=== PATIENT | male | born 1955 | race African-American/Black ===

== ENCOUNTER 2016-11-28 01:45 | Inpatient (IN) | payer MEDICAID ==
[2016-11-28] VITALS (13 sets, daily range): BP systolic 140–187; BP diastolic 77–96
[~2016-11-28] VITALS: Ht 193 cm; Wt 101.6 kg
[~2016-11-28 01:45] MED LIST: ANUSOL-HC CREAM30 GM RECTAL; FOLIC ACID1 MG ORAL; HYDRALAZINE HCL50 MG ORAL; IBUPROFEN600 MG ORAL; ISORDIL30 MG GT; KEFLEX500 MG ORAL; NKM; VITAMIN B-1100 MG ORAL
[2016-11-28] MEDS ORDERED: AMLODIPINE BESYL5 MG ORAL (01:59)
[2016-11-28] MEDS ORDERED: Aspirin Baby 81mg ORAL ONE (02:15)
[2016-11-28] MEDS ORDERED: Nitroglycerin Subl 0.4mg tab (Bottle Of 25) SL PRN ×2 (02:30→06:30)
[2016-11-28 02:59] LABS: ALANINE AMINOTRANSFERASE 24 U/L (3-41); ALBUMIN/GLOBULIN RATIO 1.3 (1.0-2.7); ANION GAP 14 (5-15); ASPARTATE AMINO TRANSFERASE 21 U/L (5-40); CALCIUM 9.4 mg/dL (8.6-10.2); CARBON DIOXIDE 26 mEQ/L (20-30); CHLORIDE 101 mEQ/L (98-107); CREATININE 1.1 mg/dL (0.7-1.2); GLOMERULAR FILTRATION RATE > 60 mL/min (>60); HEMOLYSIS 7; POTASSIUM 3.8 mEQ/L (3.4-4.9); SODIUM 141 mEQ/L (135-145); TOTAL PROTEIN 7.4 g/dL (6.6-8.7)
[2016-11-28 03:01] LABS: TROPONIN I < 0.30 ng/mL (<=0.30)
[2016-11-28 03:11] LABS: CKMB 2.8 ng/mL (< 6.7)
[2016-11-28 03:26] LABS: BASOPHILS % (AUTO) 1.8 % (0.0-2.0); EOSINOPHILS % (AUTO) 5.2 % (0.0-3.0); LYMPHOCYTES % (AUTO) 48.5 % (20.0-45.0); MEAN CORPUSCULAR HEMOGLOBIN 31.9 PG (27.0-31.0); MEAN CORPUSCULAR HGB CONC 34.1 G/DL (32.0-36.0); MEAN CORPUSCULAR VOLUME 94 FL (80-99); MEAN PLATELET VOLUME 15.9 FL (6.5-10.1); MONOCYTES % (AUTO) 11.8 % (1.0-10.0); NEUTROPHILS % (AUTO) 32.7 % (45.0-75.0); PLATELET COUNT 110 K/UL (150-450); RED BLOOD COUNT 4.44 M/UL (4.70-6.10); RED CELL DISTRIBUTION WIDTH 11.1 % (11.6-14.8)
[2016-11-28] MEDS ORDERED: MAGNESIUM250 M2 PO (06:03)
[2016-11-28] MEDS ORDERED: FISH OIL 1,2001 EAC3 PO (06:03)
[2016-11-28] MEDS ORDERED: VITAMIN B122500 MCG PO (06:03)
[2016-11-28] MEDS ORDERED: TERBINAFINE HC250 MG PO (06:03)
[2016-11-28] MEDS ORDERED: Diltiazem 25mg/5ml IV PRN (06:30)
[2016-11-28] MEDS ORDERED: DuoNeb 0.5-3(2.5)mg/3ml neb HHN PRN (06:30)
[2016-11-28] MEDS ORDERED: Ketorolac 30mg Inj IV PRN (06:30)
[2016-11-28] MEDS ORDERED: Miralax 17gm pkt ORAL PRN (06:30)
[2016-11-28] MEDS ORDERED: Morphine Sulfate 2mg/ml Inj IVP PRN (06:30)
[2016-11-28] MEDS: Enalaprilat 2.5mg/2ml Inj IV PRN ×2 (07:00→21:11)
[2016-11-28] MEDS: Heparin 5000 units/ml inj SUBQ SCH ×2 (08:09→20:38)
--- NOTE | 2016-11-28 08:14 | Emergency Room Report ---
History of Present Illness General Chief Complaint: Dyspnea/Respdistress Source: Patient Present Illness [facility] The patient is 61-year-old male presented after increased difficulty breathing. This reported having a fluttering sensation to the left-sided chest. This was associated with some difficulty breathing which had been worsening over the past 2 days. He stated he had been having decreased exercise tolerance as well as some shortness of breath. Patient states that he had onset of symptoms several days ago.Patient denied vomiting or diarrhea. He became concerned that he had recent the sexual partner who may have given him infection. Patient stated previously been evaluated and not been noted to have any evidence of infection. Allergies: Coded Allergies: No Known Allergies (Unverified , 09/12/13) Patient History Past Medical History: see triage record Social History: Reports: smoking Reviewed Nursing Documentation: PMH: Agreed, PSxH: Agreed Nursing Documentation-PMH Past Medical History: No History, Except For Hx Cardiac Problems: Yes Hx Hypertension: Yes Hx Cancer: No Hx Gastrointestinal Problems: No Hx Neurological Problems: No Review of Systems All Other Systems: negative except mentioned in HPI Physical Exam Vital Signs Date Time Temp Pulse Resp B/P Pulse Ox O2 Delivery O2 Flow Rate FiO2 11/28/16 01:50 97.9 74 16 199/85 96 Room Air Sp02 EP Interpretation: reviewed, normal General Appearance: normal inspection, well appearing, no apparent distress, alert, GCS 15 Head: atraumatic ENT: normal ENT inspection, hearing grossly normal, normal voice Neck: normal inspection, full range of motion, supple, no bony tend Respiratory: normal inspection, lungs clear, normal breath sounds, no respiratory distress, no retraction, no wheezing Cardiovascular #1: regular rate, rhythm, no edema Gastrointestinal: normal inspection, normal bowel sounds, non tender, soft, no guarding, no hernia Genitourinary: no CVA tenderness Musculoskeletal: normal inspection, back normal, normal range of motion Neurologic: normal inspection, alert, oriented x3, responsive, product safety engineer III-XII nml as tested, speech normal Psychiatric: normal inspection, judgement/insight normal, mood/affect normal Skin: normal inspection, normal color, no rash Medical Decision Making Diagnostic Impression: Primary Impression: ACS (acute coronary syndrome) ER Course The patient presented for shortness of breath and palpitations. Differential included but was not limited to anemia, pneumonia, pneumothorax, myocardial infarction, pericardial effusion, congestive heart failure, acidosis. Because of complexity of patient's case laboratory testing and imaging studies were ordered. I EKG interpreted by me showed normal sinus rhythm a rate of [address] depression is an incomplete right bundle branch block no T wave inversions were noted. Laboratory testing was unremarkable. The patient was given aspirin as well as nitroglycerin with improvement of shortness of breath. Dr. Blanchard was contacted for inpatient management due to complexity of medical condition. Labs Test 11/28/16 02:15 White Blood Count 6.0 K/UL (4.8-10.8) Red Blood Count 4.44 M/UL (4.70-6.10) Hemoglobin 14.2 G/DL (14.2-18.0) Hematocrit 41.6 % (42.0-52.0) Mean Corpuscular Volume 94 FL (80-99) Mean Corpuscular Hemoglobin 31.9 PG (27.0-31.0) Mean Corpuscular Hemoglobin Concent 34.1 G/DL (32.0-36.0) Red Cell Distribution Width 11.1 % (11.6-14.8) Platelet Count 110 K/UL (150-450) Mean Platelet Volume 15.9 FL (6.5-10.1) Neutrophils (%) (Auto) 32.7 % (45.0-75.0) Lymphocytes (%) (Auto) 48.5 % (20.0-45.0) Monocytes (%) (Auto) 11.8 % (1.0-10.0) Eosinophils (%) (Auto) 5.2 % (0.0-3.0) Basophils (%) (Auto) 1.8 % (0.0-2.0) Sodium Level 141 mEQ/L (135-145) Potassium Level 3.8 mEQ/L (3.4-4.9) Chloride Level 101 mEQ/L (98-107) Carbon Dioxide Level 26 mEQ/L (20-30) Anion Gap 14 (5-15) Blood Urea Nitrogen 17 mg/dL (7-23) Creatinine 1.1 mg/dL (0.7-1.2) Estimat Glomerular Filtration Rate > 60 mL/min (>60) Glucose Level 100 mg/dL (74-106) Calcium Level 9.4 mg/dL (8.6-10.2) Total Bilirubin 0.3 mg/dL (0.0-1.2) Aspartate Amino Transf (AST/SGOT) 21 U/L (5-40) Alanine Aminotransferase (ALT/SGPT) 24 U/L (3-41) Alkaline Phosphatase 99 U/L (40-129) Total Creatine Kinase 249 U/L (38-174) Creatine Kinase MB 2.8 ng/mL (< 6.7) Creatine Kinase MB Relative Index 1.1 Troponin I < 0.30 ng/mL (<=0.30) Pro-B-Type Natriuretic Peptide 43 pg/mL (0-125) Total Protein 7.4 g/dL (6.6-8.7) Albumin 4.2 g/dL (3.5-5.2) Globulin 3.2 g/dL Albumin/Globulin Ratio 1.3 (1.0-2.7) Chest X-Ray Diagnostic Results EP Interpretation: Yes Findings: no consolidation, no effusion, no pneumothorax, no acute cardiopulmonary disease Number of Views: 1 Last Vital Signs Date Time Temp Pulse Resp B/P Pulse Ox O2 Delivery O2 Flow Rate FiO2 11/28/16 07:36 96.3 64 20 173/96 100 Room Air Status: improved Disposition: ADMITTED INPATIENT Condition: Mariusz Siddiqi Nov 28, 2016 08:14
--- NOTE | 2016-11-28 08:54 | History and Physical ---
History of Present Illness General Date patient seen: Nov 28, 2016 Time patient seen: 08:00 Reason for Hospitalization: Dyspnea/Respdistress Present Illness HPI 61 y/old male with fluttering sensations all over the body intermittent for years presented with chest tightness, fluttering sensation in the chest, mild SOB no cough, no wheezing, no hemoptysis denies congestion no fever, chills, no headache, no dizziness reports drinking 6pack beer/day, smoker 1 pack.day workup in ED revealed elevated BP troponin negative ECG with TWI inferior leas, incomplete BBB , no ischemic changes troponin negative CXR no acute cardiopulmonary disease pro BNP 43 all other labs unremarkable BP 199/85 patient was given ASA and Nitro and admitted for further management [facility] had been checked for STD numerous times, negative Allergies: Coded Allergies: No Known Allergies (Unverified , 09/12/13) Medication History Scheduled Amlodipine Besylate* (Amlodipine Besylate*), 5 MG ORAL DAILY, (Reported) Cyanocobalamin (Vitamin B-12) (Vitamin B12), 1,000 MCG PO DAILY, (Reported) Magnesium Oxide (Magnesium), 250 MG PO DAILY, (Reported) Argyle-3 Fatty Acids/Fish Oil (Fish Oil 1,200 Mg Softgel), 1 EACH PO DAILY, ( Reported) Terbinafine Hcl* (Lamisil*), 250 MG PO DAILY, (Reported) Discontinued Medications Cephalexin* (Keflex*), 500 MG ORAL Q6H Discontinued Reason: Pt stopped taking med Folic Acid* (Folic Acid*), 1 MG ORAL DAILY Discontinued Reason: Pt stopped taking med Hydralazine Hcl* (Hydralazine Hcl*), 50 MG ORAL EVERY 8 HOURS Discontinued Reason: Pt stopped taking med Ibuprofen* (Motrin*), 600 MG ORAL Q8H PRN for For Pain Discontinued Reason: Pt stopped taking med Isosorbide Dinitrate (Isosorbide Dinitrate), 30 MG GT DAILY Discontinued Reason: Pt stopped taking med No Known Medications* (NKM - No Known Medications*), 0 ., (Reported) Discontinued Reason: Pt stopped taking med Thiamine Hcl* (Vitamin B-1*), 100 MG ORAL DAILY Discontinued Reason: Pt stopped taking med Patient History Healthcare decision maker Resuscitation status Full Code Advanced Directive on File Past Medical/Surgical History Past Medical/Surgical History: (1) Dyspepsia (2) Congestive heart failure (CHF) (3) ETOH abuse (4) External hemorrhoid (5) Headache (6) Hypertension Review of Systems Constitutional: Reports: other - fluttering sensation in the body Eye: Reports: no symptoms ENT: Reports: no symptoms Respiratory: Reports: see HPI Cardiovascular: Reports: see HPI Gastrointestinal: Reports: no symptoms, other - dyspepsia, hemorrhoids Genitourinary: Reports: no symptoms Musculoskeletal: Reports: no symptoms Psychiatric: Reports: no symptoms Neurological: Reports: headache Endocrine: Reports: other Hematologic/Lymphatic: Reports: no symptoms Physical Exam General Appearance: WD/WN, no apparent distress, alert Lines, tubes and drains: peripheral HEENT: normocephalic, atraumatic, anicteric, PERRL Neck: supple Respiratory/Chest: lungs clear, no respiratory distress, respiratory distress Cardiovascular/Chest: normal rate, regular rhythm, no JVD Abdomen: normal bowel sounds, soft Extremities: normal range of motion, non-tender, no calf tenderness, normal capillary refill Skin Exam: normal pigmentation, warm/dry Neurologic: no motor/sensory deficits, alert, oriented x 3, responsive Musculoskeletal: normal muscle bulk Last 24 Hour Vital Signs Date Time Temp Pulse Resp B/P Pulse Ox O2 Delivery O2 Flow Rate FiO2 11/28/16 07:36 96.3 64 20 173/96 100 Room Air 11/28/16 07:00 173/96 11/28/16 05:50 96.6 68 20 176/94 100 Room Air 11/28/16 05:45 98.0 67 15 172/84 99 Room Air 11/28/16 05:35 98.0 67 15 172/84 99 Room Air 11/28/16 05:05 62 16 170/80 97 Room Air 11/28/16 04:40 98.0 73 16 173/84 98 Room Air 11/28/16 03:00 67 14 167/89 97 Room Air 11/28/16 02:48 70 13 179/92 96 Room Air 11/28/16 02:43 71 14 162/89 97 Room Air 11/28/16 02:38 185/85 11/28/16 02:38 72 15 187/86 99 Room Air 11/28/16 02:00 72 14 Room Air 11/28/16 01:50 97.9 74 16 199/85 96 Room Air Intake and Output 11/27/16 11/28/16 19:00 07:00 Intake Total 100 ml Balance 100 ml Intake Oral 100 ml Laboratory Tests Test 11/28/16 02:15 White Blood Count 6.0 K/UL (4.8-10.8) Red Blood Count 4.44 M/UL (4.70-6.10) L Hemoglobin 14.2 G/DL (14.2-18.0) Hematocrit 41.6 % (42.0-52.0) L Mean Corpuscular Volume 94 FL (80-99) Mean Corpuscular Hemoglobin 31.9 PG (27.0-31.0) H Mean Corpuscular Hemoglobin Concent 34.1 G/DL (32.0-36.0) Red Cell Distribution Width 11.1 % (11.6-14.8) L Platelet Count 110 K/UL (150-450) L Mean Platelet Volume 15.9 FL (6.5-10.1) H Neutrophils (%) (Auto) 32.7 % (45.0-75.0) L Lymphocytes (%) (Auto) 48.5 % (20.0-45.0) H Monocytes (%) (Auto) 11.8 % (1.0-10.0) H Eosinophils (%) (Auto) 5.2 % (0.0-3.0) H Basophils (%) (Auto) 1.8 % (0.0-2.0) Sodium Level 141 mEQ/L (135-145) Potassium Level 3.8 mEQ/L (3.4-4.9) Chloride Level 101 mEQ/L (98-107) Carbon Dioxide Level 26 mEQ/L (20-30) Anion Gap 14 (5-15) Blood Urea Nitrogen 17 mg/dL (7-23) Creatinine 1.1 mg/dL (0.7-1.2) Estimat Glomerular Filtration Rate > 60 mL/min (>60) Glucose Level 100 mg/dL (74-106) Calcium Level 9.4 mg/dL (8.6-10.2) Total Bilirubin 0.3 mg/dL (0.0-1.2) Aspartate Amino Transf (AST/SGOT) 21 U/L (5-40) Alanine Aminotransferase (ALT/SGPT) 24 U/L (3-41) Alkaline Phosphatase 99 U/L (40-129) Total Creatine Kinase 249 U/L (38-174) H Creatine Kinase MB 2.8 ng/mL (< 6.7) Creatine Kinase MB Relative Index 1.1 Troponin I < 0.30 ng/mL (<=0.30) Pro-B-Type Natriuretic Peptide 43 pg/mL (0-125) Total Protein 7.4 g/dL (6.6-8.7) Albumin 4.2 g/dL (3.5-5.2) Globulin 3.2 g/dL Albumin/Globulin Ratio 1.3 (1.0-2.7) Rapid Plasma Reagin Pending Height (Feet): 6 Height (Inches): 4.00 Weight (Pounds): 224 Medications Current Medications Medications (Trade) Dose Ordered Sig/Petra Route PRN Reason Start Time Stop Time Status Last Admin Dose Admin Acetaminophen (Tylenol) 650 mg Q4H PRN ORAL FEVER 11/28/16 06:30 12/28/16 06:29 Albuterol/ Ipratropium (DuoNeb 0.5-3(2.5)mg/3ml) 3 ml Q4H PRN HHN Shortness of Breath 11/28/16 06:30 12/03/16 06:29 Amlodipine Besylate (Norvasc) 5 mg DAILY ORAL 11/28/16 09:00 12/28/16 08:59 UNV Aspirin (ASA) 162 mg DAILY ORAL 11/28/16 09:00 12/28/16 08:59 11/28/16 08:12 Diltiazem HCl (Cardizem) 10 mg Q1H PRN IV heart rate more than 120, 11/28/16 06:30 12/28/16 06:29 Enalaprilat (Vasotec) 2.5 mg Q6H PRN IV sbp more than 160 11/28/16 06:30 12/28/16 06:29 11/28/16 07:00 Heparin Sodium (Porcine) (Heparin 5000 units/ml) 5,000 units EVERY 12 HOURS SUBQ 11/28/16 09:00 12/28/16 08:59 Ketorolac Tromethamine (Toradol 30mg) 30 mg Q6H PRN IV moderate pain ( 4-6) 11/28/16 06:30 12/03/16 06:29 Magnesium Oxide (Mag-Ox 400mg) 250 mg DAILY ORAL 11/28/16 09:00 12/28/16 08:59 UNV Morphine Sulfate (Morphine Sulfate) 2 mg Q4H PRN IVP severe Pain (Pain Scale 7-10) 11/28/16 06:30 12/05/16 06:29 Nitroglycerin (Ntg) 0.4 mg Q5M PRN SL Prn Chest Pain 11/28/16 06:30 12/28/16 06:29 Ondansetron HCl (Zofran) 4 mg Q6H PRN IVP Nausea & Vomiting 11/28/16 06:30 12/28/16 06:29 Pantoprazole (Protonix) 40 mg BEFORE BREAKFAST ORAL 11/28/16 06:30 12/28/16 06:29 11/28/16 07:00 Polyethylene Glycol (Miralax) 17 gm DAILYPRN PRN ORAL Constipation 11/28/16 06:30 12/28/16 06:29 Temazepam (Restoril) 15 mg HSPRN PRN ORAL Insomnia 11/28/16 06:30 12/05/16 06:29 Assessment/Plan Assessment/Plan ASSESSMENT chest pain r/o ACS HTN urgency Hx of ETOH abuse active smoker anxiety r/o syphilis PLAN OF CARE tele serial troponin ECG in am ECHO cardio eval start ASA BP management with CCB and optimize further as needed family and marriage counsellor on cessation of smoking and abstinence from ETOH no evidence of ETOH w/drawal, no hand tremors, no anxiety, no ALOC or other symptoms add Thiamine and folic acid check Mg in am declined Nicotine patch not using any inhalers at home no clinical evidence of COPD exacerbation O2 HHN prn check lipid panel TSH in am check RPR pain management with Morphine and Nitro prn DVT GI prophylaxis case discussed and evaluated by supervising physician Kirk (Adonaycrescencio)Chery NP Nov 28, 2016 08:54
[2016-11-28] MEDS ORDERED: Aspirin Baby 81mg ORAL SCH (09:00)
[2016-11-28] MEDS ORDERED: Magnesium Oxide 400mg tab ORAL SCH ×3 (09:00→11:00)
--- NOTE | 2016-11-28 11:06 | Diagnostic Imaging Report ---
Indication: Dyspnea Comparison: The A single view chest radiograph was obtained. Findings: Cardiomediastinal appearance is within normal limits for age. Pulmonary vascularity is appropriate. The diaphragmatic contour is smooth and costophrenic angles are sharp. No pleural effusions are identified. The bones are unremarkable. Impression: No acute findings
--- NOTE | 2016-11-28 15:49 | Cardiology Progress Note ---
Subjective Subjective [id number] Objective Last 24 Hour Vital Signs Date Time Temp Pulse Resp B/P Pulse Ox O2 Delivery O2 Flow Rate FiO2 11/28/16 15:20 98.1 57 20 140/77 96 Room Air 11/28/16 12:00 58 11/28/16 11:17 97.3 62 20 159/86 99 Room Air 11/28/16 10:20 64 165/80 11/28/16 08:00 56 11/28/16 07:36 96.3 64 20 173/96 100 Room Air 11/28/16 07:00 173/96 11/28/16 05:50 96.6 68 20 176/94 100 Room Air 11/28/16 05:45 98.0 67 15 172/84 99 Room Air 11/28/16 05:35 98.0 67 15 172/84 99 Room Air 11/28/16 05:05 62 16 170/80 97 Room Air 11/28/16 04:40 98.0 73 16 173/84 98 Room Air 11/28/16 03:00 67 14 167/89 97 Room Air 11/28/16 02:48 70 13 179/92 96 Room Air 11/28/16 02:43 71 14 162/89 97 Room Air 11/28/16 02:38 185/85 11/28/16 02:38 72 15 187/86 99 Room Air 11/28/16 02:00 72 14 Room Air 11/28/16 01:50 97.9 74 16 199/85 96 Room Air Intake and Output 11/27/16 11/28/16 19:00 07:00 Intake Total 100 ml Balance 100 ml Intake Oral 100 ml Laboratory Tests Test 11/28/16 02:15 White Blood Count 6.0 K/UL (4.8-10.8) Red Blood Count 4.44 M/UL (4.70-6.10) L Hemoglobin 14.2 G/DL (14.2-18.0) Hematocrit 41.6 % (42.0-52.0) L Mean Corpuscular Volume 94 FL (80-99) Mean Corpuscular Hemoglobin 31.9 PG (27.0-31.0) H Mean Corpuscular Hemoglobin Concent 34.1 G/DL (32.0-36.0) Red Cell Distribution Width 11.1 % (11.6-14.8) L Platelet Count 110 K/UL (150-450) L Mean Platelet Volume 15.9 FL (6.5-10.1) H Neutrophils (%) (Auto) 32.7 % (45.0-75.0) L Lymphocytes (%) (Auto) 48.5 % (20.0-45.0) H Monocytes (%) (Auto) 11.8 % (1.0-10.0) H Eosinophils (%) (Auto) 5.2 % (0.0-3.0) H Basophils (%) (Auto) 1.8 % (0.0-2.0) Sodium Level 141 mEQ/L (135-145) Potassium Level 3.8 mEQ/L (3.4-4.9) Chloride Level 101 mEQ/L (98-107) Carbon Dioxide Level 26 mEQ/L (20-30) Anion Gap 14 (5-15) Blood Urea Nitrogen 17 mg/dL (7-23) Creatinine 1.1 mg/dL (0.7-1.2) Estimat Glomerular Filtration Rate > 60 mL/min (>60) Glucose Level 100 mg/dL (74-106) Calcium Level 9.4 mg/dL (8.6-10.2) Total Bilirubin 0.3 mg/dL (0.0-1.2) Aspartate Amino Transf (AST/SGOT) 21 U/L (5-40) Alanine Aminotransferase (ALT/SGPT) 24 U/L (3-41) Alkaline Phosphatase 99 U/L (40-129) Total Creatine Kinase 249 U/L (38-174) H Creatine Kinase MB 2.8 ng/mL (< 6.7) Creatine Kinase MB Relative Index 1.1 Troponin I < 0.30 ng/mL (<=0.30) Pro-B-Type Natriuretic Peptide 43 pg/mL (0-125) Total Protein 7.4 g/dL (6.6-8.7) Albumin 4.2 g/dL (3.5-5.2) Globulin 3.2 g/dL Albumin/Globulin Ratio 1.3 (1.0-2.7) Rapid Plasma Reagin Pending NATHANIEL SCRUGGS Nov 28, 2016 15:49
--- NOTE | 2016-11-28 23:45 | Consultation ---
DATE OF CONSULTATION: 11/28/2016 CARDIOLOGY CONSULTATION CONSULTING PHYSICIAN: Nohemi Rey M.D. REFERRING PHYSICIAN: Oniel Blanchard M.D. IDENTIFYING DATA: The patient is a 61-year-old male. REASON FOR EVALUATION: Palpitations and shortness of breath. HISTORY OF PRESENT ILLNESS: The patient said that he came in because he had feeling of palpitations, feels like in more detail twitching in separate parts of his chest abdomen on and off. He said initially four days ago, it started but then he said that he has it for years and he was actually concerned that there is something under his skin, which is palpitating. PAST MEDICAL HISTORY: Significant for hypertension. PAST SURGICAL HISTORY: Negative. MEDICATIONS: Reviewed and reconciled. HABITS: He drinks and he smokes. Does not use any drugs that he denies. No allergies, coronary risk factors smoking, hypertension and hyperlipidemia. REVIEW OF SYSTEMS: No fever or chills. No syncope. No exertional chest pain. He says also he had shortness of breath intermittently, but does not sound like it is with exertion or anything new. No wheezing or cough. PHYSICAL EXAMINATION: VITAL SIGNS: Blood pressure 160/80, heart rate 60, temperature is normal, and oxygen saturation is normal. HEENT: PERRLA. EOMI. NECK: Supple. Jugular pressure is normal. No masses. LUNGS: Clear to auscultation bilaterally. HEART: PMI in the sixth intercostal space in anterior axial line. There is left ventricular heave. Slightly accented A2. ABDOMEN: Soft and nontender. No masses palpable. EXTREMITIES: Lower extremity, no edema. Distal pulses normal. NEUROLOGICAL: Normal. LABORATORY AND DIAGNOSTIC DATA: His labs are all reviewed. EKG is normal. Chest x-ray, unremarkable. Hemoglobin 14.2 and white count 6. CK is 249. Troponin is normal. IMPRESSION AND RECOMMENDATION: The patient has symptoms, which are probably not cardiac. He is on telemetry. There is no chest pain. The muscle twitching as he described across his body including abdomen is either muscle spasm or just anxiety. He is concerned about an infection. I discussed it with him and he is going to be observed on the monitor. There are no additional medications are recommended. Thank you for your consultation. Nohemi Rey M.D. DR: PEDRO JOB#: [id number] CC:
[2016-11-29] VITALS: BP 181/97
[2016-11-29] MEDS ORDERED: Thiamine 100mg tab ORAL SCH (09:00)
--- NOTE | 2016-11-30 14:38 | Discharge Summary ---
Discharge Summary Hospital Course Date of Admission Nov 28, 2016 at 03:13 Date of Discharge Nov 29, 2016 at 00:45 Admitting Diagnosis CONGESTIVE HEART FAILURE HPI Colby Finn is a 61 year old male who was admitted on Nov 28, 2016 at 03:13 for Acute Coronary Syndrome Hospital Course dc summary #[id number] Discharge Discharge Disposition Patient signed AMA Discharge Diagnoses: Kirk (Adonaycrescencio)Chery NP Nov 30, 2016 14:38
--- NOTE | 2016-12-01 01:01 | Discharge Summary 2 SIG ---
DATE OF ADMISSION: 11/28/2016 DATE OF DISCHARGE: 11/29/2016 REASON FOR ADMISSION: The patient is a 61-year-old male, presented to the emergency room with complaint of fluttering sensation and muscle twitching all over the body, it is intermittent and presented . The patient presented at this time also with the chest tightness and fluttering sensation in the chest and mild shortness of breath. No cough. No wheezing. No hemoptysis. He denies congestion. Denies wheezing. No fever. No chills. No headache. No dizziness. The patient reports drinking 6 pack of beer a day and smokes about a pack of cigarettes a day. Workup in the emergency room revealed elevated blood pressure. Troponin negative. EKG revealed T-wave inversion in inferior lead, incomplete bundle-branch block, no ischemic changes. Troponin was negative. Chest x-ray revealed no acute cardiopulmonary disease. ProBNP was 43. All other labs were negative. Blood pressure was 199/85. The patient was given aspirin and nitroglycerin and admitted for further management. [facility] . The patient had been checked for STD numerous x2 and was negative. The patient concerned about infection and wants to be checked again. ADMITTING DIAGNOSES: 1. Chest pain, rule out acute coronary syndrome. 2. Hypertensive urgency. 3. History of alcohol abuse. 4. Active smoker . 5. Anxiety. 6. Rule out syphilis. HOSPITAL COURSE: The patient admitted on telemetry floor. Serial troponins ordered. Echocardiogram ordered. Cardiology evaluation was requested. The patient started on aspirin. Blood pressure was managed with calcium channel kathy and clonidine as needed. The patient was counseled on cessation of smoking and abstinence from alcohol. The patient was also consult on safe sex practices. No evidence of alcohol withdrawal. No hand tremors. No anxiety. No altered level of consciousness. No other symptoms. Thiamine and folic acid added to medication regimen. The patient declined nicotine patch. He is not using any inhalers at home. Supplemental oxygen and pulmonary toilet provided as needed. Pulse oximetry stable on room air. No clinical evidence of COPD exacerbation. Pain management provided with morphine and nitroglycerin. DVT and GI prophylaxis provided. Cardiology consult was requested. Per paper novelty maker, the patient's chest pain is not cardiac. His muscle twitching across the body including abdomen likely muscle spasm or just anxiety. The patient decreased labs in the morning was order magnesium, lipid panel, and TSH. The patient refuses labs. Serology for RPR was negative. The patient was informed of that. Chest x-ray revealed no acute cardiopulmonary disease. Echocardiogram revealed preserved ejection fraction of 55%, right ventricular systolic pressure of 26 and mild left ventricular hypertrophy. The patient around on 11/29/2016 just pass midnight, the patient decided to sign against medical advice after he heard RPR results are negative. He signed the paper against medical advice. Risks and consequences of signing against medical advice were discussed with the patient. The patient insisted and signed the paper and left the unit in stable condition. DISCHARGE DIAGNOSES: 1. Likely atypical chest pain. 2. Hypertensive urgency. 3. History of alcohol abuse. 4. Active smoker. Oniel Blanchard M.D. I have been assigned to dictate discharge summary on this account and I was not involved in the patient's management. Chery Donahuecentral new york psychiatric centerHaim N.PMirtha DR: Jet JOB#: [id number] CC:
== END 2016-11-29 00:45 | disposition left against medical advice (07) | DRG 203 ==
LOC: EMR 02:39 → 2E 03:13 → EDBEDREQ 04:23
DX: R07.89 Other chest pain (principal); I50.9 Heart failure, unspecified; I16.0 Hypertensive urgency; F10.10 Alcohol abuse, uncomplicated; F17.200 Nicotine dependence, unspecified, uncomplicated; F41.9 Anxiety disorder, unspecified; R00.2 Palpitations
CPT/HCPCS: 36415; 71010; 80053; 82550; 82553; 83880; 84484; 85025; 86592; 93005; 93306; 94664

== ENCOUNTER 2017-11-24 16:36 | Emergency (ER) | payer MEDICAID ==
[~2017-11-24] VITALS: Ht 193 cm; Wt 102.1 kg
[~2017-11-24 16:36] MED LIST changes: +AMLODIPINE BESYL5 MG ORAL; +FISH OIL 1,2001 EAC3 PO; +MAGNESIUM250 M2 PO; +TERBINAFINE HC250 MG PO; +VITAMIN B122500 MCG PO
[2017-11-24 17:13] LABS: APPEARANCE,URINE CLEAR; BILIRUBIN, URINE NEGATIVE (NEGATIVE); GLUCOSE, URINE (UA) NEGATIVE (NEGATIVE); KETONES,URINE 1+ (NEGATIVE); LEUKOCYTE ESTERASE ,URINE NEGATIVE (NEGATIVE); NITRITE,URINE NEGATIVE (NEGATIVE); PH,URINE 5 (4.5-8.0); PROTEIN,URINE 3+ (NEGATIVE); UROBILINOGEN,URINE NORMAL MG/DL (0.0-1.0)
[2017-11-24 17:14] LABS: COLOR,URINE YELLOW
[2017-11-24] MEDS ORDERED: Azithromycin 250mg tab ORAL ONE (17:15)
[2017-11-24] MEDS ORDERED: Lidocaine 1% MPF 10mg/ml 5ml INJ ONE (17:15)
[2017-11-24 17:19] VITALS: BP 168/85
[2017-11-24] MEDS ORDERED: NORVASC2.5 MG ORAL (17:32)
--- NOTE | 2017-11-24 17:34 | Emergency Room Report ---
History of Present Illness General Chief Complaint: Male Urogenital Problems Present Illness HPI 62-year-old male patient presents to ER complaining of pain with urination for the past one day. Patient reports that he recently had sex with a new partner without protection. Reports that he is concerned about having sexual transmitted infection, states he has another partner and he does not want to infect. Denies fever, penile discharge, back pain, flank pain, abdominal pain, hematuria. Denies other acute symptoms at this time. Denies history of prostate problems. Reports he would like to be treated for STI, states he has history of STI. Also requesting refill for Norvasc medication. reports takes medication intermittently, trying to control with diet and exercise. Takes pills for high blood pressure. Denies chest pain, shortness breath, headache. Denies other acute symptoms or reports has follow-up appointment with primary care provider in 2 weeks. denies rash. Allergies: Coded Allergies: No Known Allergies (Unverified , 09/12/13) Patient History Past Medical History: see triage record Reviewed Nursing Documentation: PMH: Agreed; PSxH: Agreed Nursing Documentation-PMH Hx Cardiac Problems: Yes Hx Hypertension: Yes Hx Cancer: No Hx Gastrointestinal Problems: No Hx Neurological Problems: No Review of Systems All Other Systems: negative except mentioned in HPI Physical Exam Vital Signs Date Time Temp Pulse Resp B/P (MAP) Pulse Ox O2 Delivery O2 Flow Rate FiO2 11/24/17 16:47 98.0 80 20 176/90 98 Room Air 98.1 Sp02 EP Interpretation: reviewed, normal General Appearance: well appearing, no apparent distress, alert, GCS 15, non- toxic Head: normocephalic, atraumatic Eyes: bilateral eye normal inspection, bilateral eye PERRL ENT: hearing grossly normal, normal pharynx, no angioedema, normal voice, uvula midline, moist mucus membranes Neck: full range of motion Respiratory: lungs clear, normal breath sounds, no rhonchi, no respiratory distress, no accessory muscle use, no wheezing, speaking full sentences Cardiovascular #1: regular rate, rhythm, no edema Gastrointestinal: non tender, soft, no mass, non-distended, no guarding, no rebound Rectal: deferred Genitourinary: no CVA tenderness Musculoskeletal: back normal, digits/nails normal, gait/station normal, normal range of motion, non-tender Neurologic: alert, oriented x3, responsive, motor strength/tone normal, sensory intact Psychiatric: mood/affect normal Skin: no rash Lymphatic: no adenopathy Medical Decision Making PA Attestation Dr. Lara is my supervising Physician whom patient management has been discussed with. Diagnostic Impression: Primary Impression: Sexually transmitted infection Additional Impression: Encounter for medication refill ER Course Pt. presents to the ED c/o STI And requesting refill of Norvasc medication. Ddx considered but are not limited to gonorrhea, chalmydia, cystitis, pylonephritis. Vital signs: are WNL, pt. is afebrile. blood pressure elevated, patient denies acute symptoms, denies chest pain, shortness breath, abdominal pain, headache. Does not require acute intervention ER at this time. Informed patient to take medications as prescribed by primary care provider. Continue to eat healthy, low sodium diet,and exercise regularly. Ordered urinalysis, Azithromycin and Rocephin. ER course: physical exam benign. informed patient that STI symptoms usually do not present within 24 hours. informed patient needs to follow up with STI clinic for further testing treatment. Informed partners need for treatment. Avoid sexual contact for the next 2 weeks. wear condoms during sex. informed patient that other STI is may be present such as syphilis, needs to follow-up with the STI clinic for further testing. informed patient's symptoms may be related to prostate, follow-up with primary care provider for further treatment and referral as needed. Patient would like to treated for STI so that long-term partner does not contracted any infection. informed patient ER does not normally provide refills of medications. Will provide medications to patient's for Norvasc. follow-up with primary care provider to discuss treatment and further medication needs. Denies acute symptoms including chest pain and shortness of breath, does not require ER intervention at this time. DISCHARGE: Rx provided for Norvasc, 2.5 mg Advised to use safe sex practices including but not limited to use of condoms. Instructed patient to follow up with STI clinic and/or PCP for future STI treatment and prevention. Instructed patient to inform partner of need for treatment to prevent future infection. Patient is resting comfortably, in no acute distress, nontoxic appearing, talking without difficulty. Patient to take medications as instructed Will provide with patient care instructions and any necessary prescriptions. Care plan and follow-up instructions provided. Patient instructed to follow-up with primary care provider in 3 - 5 days. Patient questions asked and answered. Patient reports understanding and agreement to treatment plan. ER precautions given. Patient instructed to return to ER immediately for any new or worsening of symptoms including but not limited to increasing SOB, persistent fever. - Please note that this Emergency Department Report was dictated using Face++e learning designer technology software, occasionally this can lead to erroneous entry secondary to interpretation by the dictation equipment. Last Vital Signs Date Time Temp Pulse Resp B/P (MAP) Pulse Ox O2 Delivery O2 Flow Rate FiO2 11/24/17 17:19 98.1 86 17 168/85 98 Room Air 98.1 Disposition: HOME, SELF-CARE Condition: Stable Scripts Amlodipine Besylate (Norvasc) 2.5 Mg Tablet 2.5 MG ORAL DAILY, #25 TAB Prov: Mak Rojas 11/24/17 Patient Instructions: Medicine Refill at the Emergency Department, Sexually Transmitted Disease, [id number]-[id number] Additional Instructions: Followup with primary care provider to discuss further treatment and referral. ER does not normally provide refill of medications. Follow-up with STI clinic for further testing and treatment. Inform partners of need further testing and treatment. Avoid sexual contact for the next 2 weeks. Wear condoms during sex. Take medications as directed. Patient questions asked and answered. ER precautions given, patient instructed to return to ER immediately for any new or worsening of symptoms. Mak Rojas November 24, 2017 17:34
[2017-11-24 18:04] VITALS: BP 168/85
== END 2017-11-24 18:04 | disposition home or self-care (01) ==
LOC: EMR 17:37
DX: A64 Unspecified sexually transmitted disease (principal); Z76.0 Encounter for issue of repeat prescription; I10 Essential (primary) hypertension
CPT/HCPCS: 81003; 96372; 99283; J0696; Q0144

== ENCOUNTER 2018-01-31 14:26 | Emergency (ER) | payer MEDICAID ==
[~2018-01-31] VITALS: Ht 193 cm; Wt 101.6 kg
[~2018-01-31 14:26] MED LIST changes: +NORVASC2.5 MG ORAL
[2018-01-31 15:06] LABS: APPEARANCE,URINE CLEAR; BILIRUBIN, URINE NEGATIVE (NEGATIVE); COLOR,URINE PALE YELLOW; GLUCOSE, URINE (UA) NEGATIVE (NEGATIVE); KETONES,URINE NEGATIVE (NEGATIVE); LEUKOCYTE ESTERASE ,URINE NEGATIVE (NEGATIVE); NITRITE,URINE NEGATIVE (NEGATIVE); PH,URINE 5 (4.5-8.0); PROTEIN,URINE 3+ (NEGATIVE); UROBILINOGEN,URINE NORMAL (NORMAL)
--- NOTE | 2018-01-31 15:27 | Emergency Room Report ---
History of Present Illness General Chief Complaint: Male Urogenital Problems Source: Patient, Medical Record Present Illness HPI Patient presents emergency department today with multiple complaints. Patient currently has a history of UTI or STD he was treated multiple times antibiotics she's complaining of persistent dysuria or penile discharge. He also complains of lower back pain. In addition he complains of my redness and occasional crusting this been going on for weeks. He's requesting antibiotics without as well. He denies any fever chest pain shortness breath. No other complaints are noted. Symptoms noted moderate. Denies any radiation pain. Denies any sciatica. Denies any numbness. Denies any perineal tingling or abnormal sensation. Denies any testicular pain. No other modifying factors. No other associated signs and symptoms. No other complaints were noted. Allergies: Coded Allergies: No Known Allergies (Unverified , 09/12/13) Patient History Past Medical History: HTN, CAD Past Surgical History: none Pertinent Family History: none Social History: Denies: smoking, alcohol use, drug use Reviewed Nursing Documentation: PMH: Agreed; PSxH: Agreed Nursing Documentation-PMH Past Medical History: No History, Except For Hx Cardiac Problems: Yes Hx Hypertension: Yes Hx Cancer: No Hx Gastrointestinal Problems: No Hx Neurological Problems: No Review of Systems All Other Systems: negative except mentioned in HPI Physical Exam Vital Signs Date Time Temp Pulse Resp B/P (MAP) Pulse Ox O2 Delivery O2 Flow Rate FiO2 01/31/18 14:34 97.6 74 18 189/92 97 Room Air 97.5 Sp02 EP Interpretation: reviewed, normal General Appearance: normal inspection, well appearing, no apparent distress, alert Head: atraumatic Eyes: bilateral eye normal inspection - Conjunctivitis ENT: normal ENT inspection, hearing grossly normal, normal voice Neck: normal inspection, full range of motion, supple, no bony tend Respiratory: normal inspection, lungs clear, normal breath sounds, no respiratory distress, no retraction, no wheezing Cardiovascular #1: regular rate, rhythm, no edema Gastrointestinal: normal inspection, normal bowel sounds, non tender, soft, no guarding, no hernia Genitourinary: no CVA tenderness Musculoskeletal: other - back pain, tender paraspinal Neurologic: normal inspection, alert, responsive, speech normal Psychiatric: normal inspection, judgement/insight normal, mood/affect normal Skin: normal inspection, normal color, no rash Medical Decision Making Diagnostic Impression: Primary Impression: Hypertension Additional Impressions: Back pain Dysuria Conjunctivitis ER Course Patient presents emergency department with multiple complaints. Differential considerations include conjunctivitis, hypertension, hypertensive urgency, UTI, arthritis, sexually transmitted disease just to name a few. Patient laboratory workup was not impressive except for small amount white blood cells which could be consistent with UTI. However given patient's concern about sexually transmitted diseases patient was given one dose of Rocephin as well as doxycycline. Patient was also given a prescription for Cipro. Patient's complaint of conjunctivitis was treated with prescription for gentamicin drops. Patient also complained hypertension and was given prescription refill. Patient complained of lower back pain and x-rays were negative but consistent with arthritis. Patient was given pain medications.Patient is advised to follow up with primary doctor in 2-3 days and return the emergency room for any worsening symptoms and as needed. Labs Test 01/31/18 14:50 Urine Color Pale yellow Urine Appearance Clear Urine pH 5 (4.5-8.0) Urine Specific [place] 1.025 (1.005-1.035) Urine Protein 3+ (NEGATIVE) Urine Glucose (UA) Negative (NEGATIVE) Urine Ketones Negative (NEGATIVE) Urine Occult Blood Negative (NEGATIVE) Urine Nitrite Negative (NEGATIVE) Urine Bilirubin Negative (NEGATIVE) Urine Urobilinogen Normal MG/DL (NORMAL) Urine Leukocyte Esterase Negative (NEGATIVE) Urine RBC 0-2 /HPF (0 - 0) Urine WBC 2-4 /HPF (0 - 0) Urine Squamous Epithelial Cells None /LPF (NONE/OCC) Urine Amorphous Sediment Few /LPF (NONE) Urine Bacteria Few /HPF (NONE) Other X-Ray Diagnostic Results Other X-Ray Diagnostic Results : # of Views/Limited Vs Complete: 3 View Indication: Pain EP Interpretation: Yes Interpretation: no dislocation, no soft tissue swelling, no fractures Impression: No acute disease Electronically Signed by: Electronically signed by Jaime Pappas MD Last Vital Signs Date Time Temp Pulse Resp B/P (MAP) Pulse Ox O2 Delivery O2 Flow Rate FiO2 01/31/18 14:34 97.6 74 18 189/92 97 Room Air 97.5 Status: improved Disposition: HOME, SELF-CARE Condition: Stable Scripts Amlodipine Besylate* (AMLODIPINE BESYLATE*) 5 Mg Tablet 5 MG ORAL DAILY for 30 Days, TAB Prov: Jaime Pappas MD 01/31/18 Ciprofloxacin Hcl* (CIPROFLOXACIN HCL*) 500 Mg Tablet 500 MG ORAL Q12H, #14 TAB 0 Refills Prov: Jaime Pappas MD 01/31/18 Ibuprofen* (MOTRIN*) 600 Mg Tablet 600 MG ORAL Q8H PRN for For Pain, #20 TAB 0 Refills Prov: Jaime Pappas MD 01/31/18 Gentamicin Sulfate* (GENTAK*) 5 Ml Drops 1 DROP BOTH EYES Q4H, #1 DROP 0 Refills Prov: Jaime Pappas MD 01/31/18 Hydrocodone Bit/Acetaminophen 5-325* (NORCO 5-325*) 1 Each Tablet 1 TAB ORAL Q6H PRN for For Pain, #10 TAB 0 Refills Prov: Jaime Pappas MD 01/31/18 Doxycycline Hyclate* (VIBRAMYCIN*) 100 Mg Capsule 100 MG ORAL EVERY 12 HOURS, #14 CAP 0 Refills Prov: Jaime Pappas MD 01/31/18 Jaime Pappas MD Jan 31, 2018 15:27
[2018-01-31] MEDS ORDERED: GENTAK5 ML BOTH EYES (15:35)
[2018-01-31] MEDS ORDERED: VIBRAMYCIN100 MG ORAL (15:35)
[2018-01-31] MEDS ORDERED: NORCO 5-325 TA1 EACH ORAL (15:35)
[2018-01-31] MEDS ORDERED: CIPROFLOXACIN500 M2 ORAL (15:42)
[2018-01-31] MEDS ORDERED: IBUPROFEN600 MG ORAL (15:42)
[2018-01-31] MEDS ORDERED: AMLODIPINE BESYL5 MG ORAL (15:44)
[2018-01-31 15:45] VITALS: BP 198/95
[2018-01-31] MEDS ORDERED: Lidocaine 1% MPF 10mg/ml 5ml INJ ONE (15:45)
--- NOTE | 2018-01-31 16:55 | Diagnostic Imaging Report ---
Indication: Pain Technique: XRAY L Spine Ltd Comparison: None Findings: There is 6 nonrib-bearing lumbar-type vertebral bodies, assuming 12 paired ribs. No evidence of acute fracture or traumatic malalignment. Lumbar lordosis is maintained. There is degenerative change with mild disc space narrowing at the lower lumbar spine as well as osteophyte formation and facet arthropathy. Bowel gas pattern is nonspecific. No radiopaque foreign body seen. IMPRESSION: Overall mild degenerative change. No evidence of acute fracture or traumatic malalignment. Transitional lumbosacral anatomy.
== END 2018-01-31 15:45 | disposition home or self-care (01) ==
LOC: EMR 15:09
DX: I10 Essential (primary) hypertension (principal); R30.0 Dysuria; M54.9 Dorsalgia, unspecified; H10.9 Unspecified conjunctivitis; I25.10 Atherosclerotic heart disease of native coronary artery without angina pectoris
CPT/HCPCS: 72020; 81003; 99284; J0696

== ENCOUNTER 2018-11-24 13:12 | Emergency (ER) | payer MEDICAID ==
[~2018-11-24] VITALS: Ht 193 cm; Wt 101.2 kg
[~2018-11-24 13:12] MED LIST changes: +CIPROFLOXACIN500 M2 ORAL; +GENTAK5 ML BOTH EYES; +NORCO 5-325 TA1 EACH ORAL; +VIBRAMYCIN100 MG ORAL
[2018-11-24 13:30] VITALS: BP 146/98
--- NOTE | 2018-11-24 13:31 | NUR ---
ED Nurse Note: patient walked in to ER from home due to feeling of palpitation for 3-4 weeks. pt aao x4 and ambulatory. skin clean and intact. vital signs stable as documented. calm and cooperative.
--- NOTE | 2018-11-24 13:41 | NUR ---
ED Nurse Note: blood sample sent to the lab.
[2018-11-24 14:00] LABS: EOSINOPHILS % (AUTO) 4.3 % (0.0-3.0); HEMATOCRIT 41.9 % (42.0-52.0); LYMPHOCYTES % (AUTO) 41.5 % (20.0-45.0); MEAN CORPUSCULAR VOLUME 94 FL (80-99); MONOCYTES % (AUTO) 13.8 % (1.0-10.0); NEUTROPHILS % (AUTO) 38.4 % (45.0-75.0); PLATELET COUNT 206 K/UL (150-450); RED BLOOD COUNT 4.47 M/UL (4.70-6.10); RED CELL DISTRIBUTION WIDTH 11.1 % (11.6-14.8); WHITE BLOOD COUNT 4.4 K/UL (4.8-10.8)
[2018-11-24 14:20] LABS: ANION GAP 7 mmol/L (5-15); BLOOD UREA NITROGEN 16 mg/dL (7-18); CALCIUM 9.6 MG/DL (8.5-10.1); CARBON DIOXIDE 27 MMOL/L (21-32); CHLORIDE 106 MMOL/L (98-107); CREATININE 1.1 MG/DL (0.55-1.30); POTASSIUM 4.3 MMOL/L (3.5-5.1); SODIUM 140 MMOL/L (136-145)
[2018-11-24 14:36] LABS: ALANINE AMINOTRANSFERASE 28 U/L (12-78); ALBUMIN 3.5 G/DL (3.4-5.0); ALBUMIN/GLOBULIN RATIO 0.8 (1.0-2.7); ALKALINE PHOSPHATASE 118 U/L (46-116); ASPARTATE AMINO TRANSFERASE 19 U/L (15-37); BILIRUBIN,TOTAL 0.2 MG/DL (0.2-1.0); CKMB 1.3 NG/ML (0.0-3.6); CREATINE KINASE 107 U/L (26-308)
--- NOTE | 2018-11-24 14:36 | Diagnostic Imaging Report ---
Indication: Chest pain Comparison: 11/28/2016 A single view chest radiograph was obtained. Findings: The heart is enlarged. Pulmonary vascularity is mildly prominent. Bones are unremarkable. No pleural effusion seen. IMPRESSION: Suspected mild pulmonary vascular congestion. Correlate clinically
--- NOTE | 2018-11-24 14:56 | NUR ---
ED Nurse Note: PILID speaking to the pt about exam results.
[2018-11-24] MEDS ORDERED: RANITIDINE HCL150 MG ORAL (14:58)
--- NOTE | 2018-11-24 15:05 | NUR ---
ER DISCHARGE NOTE: Patient is cleared to be discharged per ERMD, pt is aox4, on room air, with stable vital signs. pt was given dc and prescription instructions, pt was able to verbalize understanding, pt id band and iv site removed without complications. pt is able to ambulate with steady gait. pt took all belongings.
[2018-11-24 15:06] VITALS: BP 139/84
--- NOTE | 2018-11-24 17:18 | Emergency Room Report ---
History of Present Illness General Chief Complaint: Palpitations Source: Patient Present Illness HPI 63-year-old male presents ED for evaluation. Patient states he's been experiencing palpitations for the last 3 weeks. States symptoms started after receiving a cortisone injection in his left ankle. states that he's been experiencing palpitations since then. Denies chest pain. Denies alcohol or drug use. No other aggravating relieving factors. Denies any other associated symptoms Allergies: Coded Allergies: No Known Allergies (Unverified , 11/24/18) Patient History Past Medical History: HTN Past Surgical History: none Pertinent Family History: none Social History: Denies: smoking, alcohol use, drug use Immunizations: UTD Reviewed Nursing Documentation: PMH: Agreed; PSxH: Agreed Nursing Documentation-PMH Past Medical History: No History, Except For Hx Cardiac Problems: Yes Hx Hypertension: Yes Hx Cancer: No Hx Gastrointestinal Problems: No Hx Neurological Problems: No Review of Systems All Other Systems: negative except mentioned in HPI Physical Exam Vital Signs Date Time Temp Pulse Resp B/P (MAP) Pulse Ox O2 Delivery O2 Flow Rate FiO2 11/24/18 13:19 98.2 69 16 156/76 (102) 97 Room Air Sp02 EP Interpretation: reviewed, normal General Appearance: no apparent distress, alert, GCS 15, non-toxic Head: normocephalic, atraumatic Eyes: bilateral eye normal inspection, bilateral eye PERRL ENT: hearing grossly normal, normal pharynx, no angioedema, normal voice Neck: full range of motion, supple/symm/no masses Respiratory: chest non-tender, lungs clear, normal breath sounds, speaking full sentences Cardiovascular #1: regular rate, rhythm, no edema Cardiovascular #2: 2+ carotid (R), 2+ carotid (L), 2+ radial (R), 2+ radial (L) , 2+ dorsalis pedis (R), 2+ dorsalis pedis (L) Gastrointestinal: normal bowel sounds, non tender, soft, non-distended, no guarding, no rebound Rectal: deferred Genitourinary: normal inspection, no CVA tenderness Musculoskeletal: back normal, gait/station normal, normal range of motion, non- tender Neurologic: alert, oriented x3, responsive, motor strength/tone normal, sensory intact, speech normal Psychiatric: judgement/insight normal, memory normal, mood/affect normal, no suicidal/homicidal ideation Reflexes: 3+ bicep (R), 3+ bicep (L), 3+ tricep (R), 3+ tricep (L), 3+ knee (R) , 3+ knee (L) Skin: normal color, no rash, warm/dry, well hydrated Lymphatic: no adenopathy Medical Decision Making Diagnostic Impression: Primary Impression: Palpitations ER Course Hospital Course 63-year-old M presents ED complaining of palpitations Differential diagnoses include: afib, Vtach, SVT, anxiety, dehydration Clinical course Patient placed on stretcher. After initial history and physical I ordered labs , EKG, chest x-ray, IVFs. labs reviewed- all electrolytes normal, troponins negative, no leukocytosis, hemoglobin/hematocrit stable EKG - NSR, no acute ischemic changes interpreted by me, some PACs noted Chest x-ray-no cardiomegaly, no rib fracture, no pneumothorax, no acute process Discussed findings with patient. I explained that it is unlikely that the cortisone injection triggered the symptoms however I do recommend that patient follow-up with his PMD and have outpatient cardiology evaluation prior to receiving his next cortisone injection I. I feel this is a highly complex case requiring extensive working including EKG/Rhythm strip, Xray/CT/US, Blood/urine lab work, repeat exams while in ED, and administration of strong opiates/narcotics for pain control, admission to hospital or close patient follow up. Diagnosis - palpitations Stable and discharged to home. Instructed to followup with PMD. Return to ED if symptoms recur or worsen Labs Test 11/24/18 13:45 White Blood Count 4.4 K/UL (4.8-10.8) Red Blood Count 4.47 M/UL (4.70-6.10) Hemoglobin 14.0 G/DL (14.2-18.0) Hematocrit 41.9 % (42.0-52.0) Mean Corpuscular Volume 94 FL (80-99) Mean Corpuscular Hemoglobin 31.2 PG (27.0-31.0) Mean Corpuscular Hemoglobin Concent 33.3 G/DL (32.0-36.0) Red Cell Distribution Width 11.1 % (11.6-14.8) Platelet Count 206 K/UL (150-450) Mean Platelet Volume 8.9 FL (6.5-10.1) Neutrophils (%) (Auto) 38.4 % (45.0-75.0) Lymphocytes (%) (Auto) 41.5 % (20.0-45.0) Monocytes (%) (Auto) 13.8 % (1.0-10.0) Eosinophils (%) (Auto) 4.3 % (0.0-3.0) Basophils (%) (Auto) 2.0 % (0.0-2.0) Sodium Level 140 MMOL/L (136-145) Potassium Level 4.3 MMOL/L (3.5-5.1) Chloride Level 106 MMOL/L (98-107) Carbon Dioxide Level 27 MMOL/L (21-32) Anion Gap 7 mmol/L (5-15) Blood Urea Nitrogen 16 mg/dL (7-18) Creatinine 1.1 MG/DL (0.55-1.30) Estimat Glomerular Filtration Rate > 60 mL/min (>60) Glucose Level 102 MG/DL (74-106) Calcium Level 9.6 MG/DL (8.5-10.1) Total Bilirubin 0.2 MG/DL (0.2-1.0) Aspartate Amino Transf (AST/SGOT) 19 U/L (15-37) Alanine Aminotransferase (ALT/SGPT) 28 U/L (12-78) Alkaline Phosphatase 118 U/L (46-116) Total Creatine Kinase 107 U/L (26-308) Creatine Kinase MB 1.3 NG/ML (0.0-3.6) Creatine Kinase MB Relative Index 1.2 Troponin I 0.000 ng/mL (0.000-0.056) Total Protein 7.9 G/DL (6.4-8.2) Albumin 3.5 G/DL (3.4-5.0) Globulin 4.4 g/dL Albumin/Globulin Ratio 0.8 (1.0-2.7) Chest X-Ray Diagnostic Results Chest X-Ray Diagnostic Results : Chest X-Ray Ordered: Yes # of Views/Limited/Complete: 1 View Indication: Chest Pain EP Interpretation: Yes Interpretation: no consolidation, no effusion, no pneumothorax, no acute cardiopulmonary disease Impression: No acute disease Electronically Signed by: Electronically signed by Tony Vila MD Last Vital Signs Date Time Temp Pulse Resp B/P (MAP) Pulse Ox O2 Delivery O2 Flow Rate FiO2 11/24/18 15:06 98.0 72 16 139/84 98 Room Air Status: improved Disposition: HOME, SELF-CARE Condition: Stable Scripts Ranitidine Hcl* (ZANTAC*) 150 Mg Tablet 150 MG ORAL TWICE A DAY, #30 TAB Prov: Tony Vila MD 11/24/18 Referrals: [facility],REFERRING (PCP) Patient Instructions: Palpitations, Kyoe-tv-Hodi Tony Vila MD November 24, 2018 17:18
== END 2018-11-24 15:08 | disposition home or self-care (01) ==
LOC: EMR 14:02
DX: R00.2 Palpitations (principal); I10 Essential (primary) hypertension
CPT/HCPCS: 36415; 71045; 80053; 82550; 82553; 84484; 85025; 93005; 99284

== ENCOUNTER 2020-06-19 15:10 | Emergency (ER) | payer MEDICARE, MEDICAID ==
[~2020-06-19 15:10] MED LIST changes: +RANITIDINE HCL150 MG ORAL
--- NOTE | 2020-06-19 16:00 | NUR ---
called no answer
--- NOTE | 2020-06-19 17:53 | Emergency Room Report ---
History of Present Illness General Chief Complaint: To Be Triaged Source: Patient Present Illness HPI The patient left the department however he was called. He states he has had several days of increased right-sided posterior shoulder pain. Or last day the pain seems to radiate to his anterior chest on the right- hand side. He is taken [id number] ibuprofen with his some minimal relief. He did not rate the pain on the phone. He was concerned about the radiation to the anterior chest. He denied fevers and chills. He denies productive cough. He denies having this problem in the past. There is no trauma. He denies exposure to Covid positive contacts. Allergies: Coded Allergies: No Known Allergies (Unverified , 11/24/18) Patient History Past Medical History: see triage record Social History: Reports: alcohol use Social History Narrative From home Reviewed Nursing Documentation: PMH: Agreed; PSxH: Agreed Nursing Documentation-PMH Hx Cardiac Problems: Yes Hx Hypertension: Yes Hx Cancer: No Hx Gastrointestinal Problems: No Hx Neurological Problems: No Review of Systems Constitutional: Denies: fever Respiratory: Reports: see HPI Cardiovascular: Reports: see HPI Gastrointestinal: Denies: nausea, vomiting Musculoskeletal: Reports: see HPI Skin: Denies: rash Physical Exam The patient had left prior to triage and my evaluation was performed over the phone. Medical Decision Making Diagnostic Impression: Primary Impression: Patient left without being seen Additional Impression: Right shoulder pain Qualified Codes: M25.511 - Pain in right shoulder ER Course Patient had left prior to being a evaluated with vital signs or physical exam. Patient was contacted by phone. Please see history. Advised the patient to return to the emergency department. He agreed to do this. We discussed that he would most likely need an EKG and a chest x-ray performed. Status: other Disposition: LEFT W/OUT BEING SEEN Condition: Unknown Referrals: NON PHYSICIAN (PCP) Talha Mejia MD Jun 19, 2020 17:53
== END 2020-06-19 16:00 | disposition left against medical advice (07) ==
LOC: EMR 16:00
DX: M25.511 Pain in right shoulder (principal); Z53.21 Procedure and treatment not carried out due to patient leaving prior to being seen by health care provider; I11.9 Hypertensive heart disease without heart failure

== ENCOUNTER 2020-07-22 21:58 | Emergency (ER) | payer MEDICARE, MEDICAID ==
[~2020-07-22] VITALS: Ht 193 cm; Wt 77.1 kg
[2020-07-22 22:07] VITALS: BP 180/92
--- NOTE | 2020-07-22 22:09 | NUR ---
Nurse Note: Pt walked in c/o RT arm and chest soreness since 3 weeks. Pt stated the soreness travels to the LT chest. PT stated "I think I slept wrong". PT denies trauma, physical exertion, shortness of breath. PT stated movement makes the soreness worse.
--- NOTE | 2020-07-22 22:25 | Emergency Room Report ---
History of Present Illness General Chief Complaint: Pain Source: Patient, Medical Record Present Illness HPI This is a 65-year-old male with a history of high blood pressure. He presents with chief complaint is arm pain and chest pain. Onset for the last 2 weeks. He said he felt achy sensation in his arm that comes and go. Now he felt it spread from the right chest area to the left chest area. Better with exertion and working. Worse when he is laying down and resting. He had neck pain that got better. Pain is achy in nature 5 out of 10. No fever chills but no exertional component. No diaphoresis or shortness of breath. Allergies: Coded Allergies: No Known Allergies (Unverified , 11/24/18) COVID-19 Screening Contact w/high risk pt: No Experienced COVID-19 symptoms?: No COVID-19 Testing performed FUSING MACHINE TENDER: No Patient History Past Medical History: see triage record, old chart reviewed, HTN Past Surgical History: other Pertinent Family History: none Social History: Denies: smoking Immunizations: other Reviewed Nursing Documentation: PMH: Agreed; PSxH: Agreed Nursing Documentation-PMH Hx Cardiac Problems: Yes Hx Hypertension: Yes Hx Cancer: No Hx Gastrointestinal Problems: No Hx Neurological Problems: No Review of Systems Eye: Denies: eye pain, blurred vision ENT: Denies: ear pain, nose congestion, throat swelling Respiratory: Denies: cough, shortness of breath Cardiovascular: Reports: chest pain; Denies: palpitations Gastrointestinal: Denies: abdominal pain, diarrhea, nausea, vomiting Musculoskeletal: Denies: back pain, joint pain Skin: Denies: rash Neurological: Denies: headache, numbness Endocrine: Denies: increased thirst, increased urine Hematologic/Lymphatic: Denies: easy bruising All Other Systems: negative except mentioned in HPI Physical Exam Vital Signs Date Time Temp Pulse Resp B/P (MAP) Pulse Ox O2 Delivery O2 Flow Rate FiO2 07/22/20 22:02 98.8 76 16 180/92 (121) 97 Room Air Vitals with high blood pressure Sp02 EP Interpretation: reviewed, normal General Appearance: well appearing, no apparent distress, alert Head: normocephalic, atraumatic Eyes: bilateral eye PERRL, bilateral eye EOMI ENT: hearing grossly normal, normal pharynx Neck: full range of motion, supple, no meningismus Respiratory: chest non-tender, lungs clear, normal breath sounds Cardiovascular #1: regular rate, rhythm, no murmur Gastrointestinal: normal bowel sounds, non tender, no mass, no organomegaly, no bruit, non-distended Musculoskeletal: back normal, normal range of motion, gait/station normal Psychiatric: mood/affect normal Medical Decision Making Diagnostic Impression: Primary Impression: Hypertension Qualified Codes: I10 - Essential (primary) hypertension Additional Impression: Chest pain Qualified Codes: R07.9 - Chest pain, unspecified ER Course Patient presents with atypical chest pain. Blood pressure elevated here. He is not completely compliant with this blood pressure medication or his diet. No evidence of ACS, PE, dissection name a few. Will discharge home. You may benefit from outpatient stress test. EKG Diagnostic Results Troponin ordered: Yes Rate: normal Rhythm: NSR ST Segments: no acute changes ASA given to the pt in ED: Yes Rhythm Strip Diag. Results EP Interpretation: yes Rate: 70 Rhythm: NSR, no PVC's, no ectopy Last Vital Signs Date Time Temp Pulse Resp B/P (MAP) Pulse Ox O2 Delivery O2 Flow Rate FiO2 07/22/20 22:07 98.8 76 16 180/92 97 Room Air Status: improved Disposition: HOME, SELF-CARE Condition: Stable Scripts Hydrochlorothiazide* (HYDROCHLOROTHIAZIDE*) 25 Mg Tablet 25 MG ORAL DAILY for Hypertension, #90 TAB Prov: Joshua Boss MD 07/22/20 Referrals: NON PHYSICIAN (PCP) Additional Instructions: Take your blood pressure medication. Follow-up with your doctor in 7 days. You may need referral to see a advance agent for a cardiac stress test. Return if symptoms worsen. Joshua Boss MD Jul 22, 2020 22:25
[2020-07-22] MEDS ORDERED: Aspirin Baby 81mg ORAL ONE (22:30)
--- NOTE | 2020-07-22 22:33 | NUR ---
Nurse Note: Blood sample obtained and sent to lab. PT tolerated oral meds.
[2020-07-22 22:51] LABS: BASOPHILS % (AUTO) 1.9 % (0.0-2.0); EOSINOPHILS % (AUTO) 3.1 % (0.0-3.0); HEMATOCRIT 40.9 % (42.0-52.0); HEMOGLOBIN 13.7 G/DL (14.2-18.0); LYMPHOCYTES % (AUTO) 43.3 % (20.0-45.0); MEAN CORPUSCULAR VOLUME 94 FL (80-99); MONOCYTES % (AUTO) 9.6 % (1.0-10.0); NEUTROPHILS % (AUTO) 42.1 % (45.0-75.0); PLATELET COUNT 195 K/UL (150-450); RED BLOOD COUNT 4.37 M/UL (4.70-6.10); RED CELL DISTRIBUTION WIDTH 11.6 % (11.6-14.8); WHITE BLOOD COUNT 6.7 K/UL (4.8-10.8)
[2020-07-22 22:55] LABS: ANION GAP 6 mmol/L (5-15); BLOOD UREA NITROGEN 27 mg/dL (7-18); CALCIUM 9.5 MG/DL (8.5-10.1); CARBON DIOXIDE 30 MMOL/L (21-32); CHLORIDE 106 MMOL/L (98-107); CREATININE 1.2 MG/DL (0.55-1.30); POTASSIUM 3.7 MMOL/L (3.5-5.1); SODIUM 142 MMOL/L (136-145)
[2020-07-22] MEDS ORDERED: HYDROCHLOROTHIA25 MG ORAL (23:24)
[2020-07-22 23:30] VITALS: BP 174/81
--- NOTE | 2020-07-22 23:30 | NUR ---
ED Nurse Note: Pt cleared by health care Provider for discharge. DC instructions/prescription was given and explained to pt and verbalized understanding of teachings. Instructed pt to follow up wtih PCP within 2-5 days. All medical deviecs such as ID band removed; IV removed, cath intact, site clean and bandaged. Pt is AAO x4, ambulatory and left with all personal belongings.
== END 2020-07-22 23:30 | disposition home or self-care (01) ==
LOC: EMR 22:20
DX: I10 Essential (primary) hypertension (principal); R07.89 Other chest pain
CPT/HCPCS: 36415; 80048; 84484; 85025; 93005; 99284